=== PATIENT | female | born 1990 | race Caucasian/White ===

== ENCOUNTER 2017-02-02 17:18 | Emergency (ER) | payer OTHER ==
[2017-02-02 17:32] VITALS: BP 123/73; PULSE 86; TEMP 98.4; BMI 26.5
[2017-02-02] MEDS ORDERED: KETOROLAC TROMETHAMINE 60 MG/2 ML VIAL IM ONE (18:13)
[2017-02-02] MEDS ORDERED: KETOROLAC TROMETHAMINE 60 MG/2 ML VIAL ONE (18:15)
--- NOTE | 2017-02-02 18:18 | PDOC ---
History of Present Illness - General Chief Complaint: Pain, Acute Stated Complaint: FOOT INJURY Time Seen by Provider: 02/02/17 18:06 History Source: Patient Exam Limitations: No Limitations - History of Present Illness Initial Comments: 02/02/17 18:15 CHIEF COMPLAINT: Right lateral lower back pain radiating down right leg HISTORY OF PRESENT ILLNESS: 26-year-old female, no significant medical history currently no medication presents with right lateral lower back pain radiating down right lateral leg into the foot. Patient denies any previous history of back pain, no neurosensory deficits, no bowel or bladder difficulty incontinence or urinary retention, no saddle anesthesia, no footdrop. No history of IVDU or history of cancer. Denies lifting anything heavy or trauma. Patient has had pain for 1 week, took only 2 Motrin without resolve symptoms. REVIEW OF SYSTEMS: GENERAL: Afebrile, denies any weakness RESPIRATORY: No cough, wheezing, or hemoptysis. CARDIAC: No chest pain or shortness of breath MUSCULOSKELETAL: Right lateral lower back pain, pain radiating down right lateral leg and foot. SKIN : No erythema, no bruising, no deformity. GI/: Denies any abdominal pain, no urinary difficulty, incontinence or urinary retention. RECTAL: Denies any difficulty this A.m. NEUROLOGICAL: Denies any numbness or tingling. No neurosensory deficits. PHYSICAL EXAM: GENERAL: The patient is awake, alert, and fully oriented, in no acute distress. RESPIRATORY: Lungs clear bilaterally, no rhonchi wheezes or crackles CARDIAC: S1-S2 audible, no murmur rub or gallop MUSCULOSKELETAL: Pain to right lateral lower back radiating down right lateral leg into foot, pain localized to the posterior foot, no tingling or sensory deficit. Less than 2 second cap refill, +4 popliteal and pedal pulses. GI/: Abdomen soft, nontender, nondistended. No rebound tenderness. No masses palpable. MUSCULOSKELETAL: No spinal point tenderness. Normal reflexive and no deficits to sensation or strength. No calf pain. No erythema or edema to lower leg. RECTAL: Normal Rectal Tone. SKIN: Warm, Dry, normal turgor, no erythema, no edema no bruising. Past History - Past Medical History Allergies/Adverse Reactions: Allergies Allergy/AdvReac Type Severity Reaction Status Date / Time No Known Drug Allergies Allergy Verified 02/02/17 17:29 Home Medications: Ambulatory Orders Diazepam [Valium] 5 mg PO Q8H #15 tablet MDD 3 02/02/17 Methylprednisolone [Medrol Dose Feliciano] 4 mg PO ASDIR #21 tablet 02/02/17 Asthma: No Cancer: No Cardiac Disorders: No Diabetes: No HTN: No Seizures: No Thyroid Disease: No - Immunization History Immunization Up to Date: Yes - Psycho/Social/Smoking Cessation Hx Anxiety: No Suicidal Ideation: No Smoking History: Never smoked Have you smoked in the past 12 months: No Information on smoking cessation initiated: No Hx Alcohol Use: No Drug/Substance Use Hx: No Substance Use Type: None Hx Substance Use Treatment: No *Physical Exam - Vital Signs Last Vital Signs Temp Pulse Resp BP Pulse Ox 98.4 F 86 18 123/73 100 02/02/17 17:29 02/02/17 17:29 02/02/17 17:29 02/02/17 17:29 02/02/17 17:29 Medical Decision Making - Medical Decision Making 02/02/17 18:18 A/P: Patient here for evaluation of sciatic type pain, patient with no risk factor for DVT, Toradol 60 mg IM times one given, will reevaluate 02/02/17 19:00 Patient reports that pain is still the same, Valium 5 mg by mouth 1 ordered. 02/02/17 20:10 Via [place] grill associate, patient states she feels slightly better after medication, will DC patient home on Medrol Dosepak, Valium. Ice pack to lower back. Follow-up with orthopedics or neurology if pain persists. Patient is noticeably ambulate without difficulty, sitting without difficulty. I discussed the physical exam findings, ancillary test results and final diagnoses with the patient. I answered all of the patient's questions. The patient was satisfied with the care received and felt comfortable with the discharge plan and treatment plan. The patient will call to arrange follow-up and will return to the Emergency Department with any new, persistent or worsening symptoms. *DC/Admit/Observation/Transfer Diagnosis at time of Disposition: Sciatic nerve pain Qualifiers: Laterality: right Qualified Code(s): M54.31 - Sciatica, right side - Discharge Dispostion Disposition: HOME Condition at time of disposition: Good Admit: No - Prescriptions Prescriptions: Methylprednisolone [Medrol Dose Feliciano] 4 mg PO ASDIR #21 tablet Diazepam [Valium] 5 mg PO Q8H #15 tablet MDD 3 - Referrals Referrals: Leland Marcus DO [Staff Physician] - - Patient Instructions Printed Discharge Instructions: DI for Sciatica, Sciatica (Alternative Therapy) Additional Instructions: 1. Please return to the emergency department with any numbness, tingling, weakness, numbness or tingling to groin or legs, or loss of bowel or bladder function. 2. Use pain medication as ordered. 3. Please is to followup in the office of Dr. Marcus for evaluation within a week if no improvement. 4. Ice or heat 5. Refrain from lifting anything above 10 pounds, until pain resolved. - Post Discharge Activity Work/School Note: Back to Work
[2017-02-02] MEDS ORDERED: diazePAM 5 MG TABLET PO ONE (18:59)
[2017-02-02] MEDS ORDERED: diazePAM 5 MG TABLET ONE (19:01)
== END 2017-02-02 20:19 | disposition home or self-care (01) ==
LOC: JERFT 17:18
PROC: 3E0233Z Introduction of Anti-inflammatory into Muscle, Percutaneous Approach (ICD-10-PCS; principal; 2017-02-02)
DX: M54.41 Lumbago with sciatica, right side (principal)
CPT/HCPCS: 96372; 99281-25

== ENCOUNTER 2018-02-18 11:57 | Emergency (ER) | payer OTHER ==
[2018-02-18 12:21] VITALS: BP 113/61; PULSE 67; TEMP 99.9; BMI 28.5
--- NOTE | 2018-02-18 12:41 | PDOC ---
History of Present Illness - General Chief Complaint: [facility] Stated Complaint: FOLLOW UP Time Seen by Provider: 02/18/18 12:18 History Source: Patient - History of Present Illness Associated Symptoms: denies: fever/chills Past History - Past Medical History Allergies/Adverse Reactions: Allergies Allergy/AdvReac Type Severity Reaction Status Date / Time No Known Drug Allergies Allergy Verified 02/18/18 12:32 Home Medications: Ambulatory Orders NK [No Known Home Medication] 02/18/18 Asthma: No Cancer: No Cardiac Disorders: No COPD: No Diabetes: No HTN: No Seizures: No Thyroid Disease: No - Immunization History Immunization Up to Date: Yes - Suicide/Smoking/Psychosocial Hx Smoking History: Never smoked Have you smoked in the past 12 months: No Information on smoking cessation initiated: No Hx Alcohol Use: No Drug/Substance Use Hx: No Substance Use Type: None Hx Substance Use Treatment: No Review of Systems - Review of Systems Constitutional: No: Chills, Fever ABD/GI: No: Nausea, Vomiting, Abdominal cramping : No: Dysuria *Physical Exam - Vital Signs Last Vital Signs Temp Pulse Resp BP Pulse Ox 99.9 F H 67 16 113/61 99 02/18/18 12:08 02/18/18 12:08 02/18/18 12:08 02/18/18 12:08 02/18/18 12:08 - Physical Exam General Appearance: Yes: Appropriately Dressed. No: Apparent Distress Neck: positive: Supple Respiratory/Chest: negative: Respiratory Distress Gastrointestinal/Abdominal: positive: Soft. negative: Tender Integumentary: positive: Dry, Warm Neurologic: positive: Fully Oriented, Alert, Normal Mood/Affect ED Treatment Course - RADIOLOGY Radiology Studies Ordered: Category Date Time Status TRANSVAGINAL US PREG [US] Stat Ultrasound 02/18/18 12:36 Ordered Medical Decision Making - Medical Decision Making 02/18/18 12:36 27 yo F, , ~ 5-6 weeks by dates, here for rpt beta and ultrasound. Patient was initially seen in ED 3 days ago c/o abd pain (of note pt under different MRN on 02/16-[id number]). Beta >3K w/ m/l intrauterine ges sac @ 5 weeks. A+ on T& S w/ neg ucx. Abd pain since improved. 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 No adnexal masses or FF. Beta with inappropriate rise, 5705 today vs 3942, 3 days ago. Disposition d/w Dr Santiago in main ED who states m/l ab/nl preg/miscarriage, less likely ectopic. States pt to f/u with OB on Wednesday and to return for worsening pain and/or vag bleed. *DC/Admit/Observation/Transfer Diagnosis at time of Disposition: Abdominal pain affecting - Discharge Dispostion Disposition: HOME Condition at time of disposition: Good - Referrals - Patient Instructions Printed Discharge Instructions: Miscarriage Additional Instructions: [place] ultrasonido muestra un embarazo temprano, mary segn los niveles hormonales en mont[place] mary, el embarazo no se desarrolla normalmente. [place] nivel de hormonas hoy fue de 5705. El mircoles fue 3942. El nmero debera duplicarse cada 2 thomson. Es muy posible que pueda terminar teniendo un aborto espontneo. Debe seguir con [place] OB el prximo lunes. Mientras tanto, si el dolor abdominal empeora y / o desarrolla sangrado vaginal, regrese a la lauren de emergencia de inmediato Print Language: SAMI - Post Discharge Activity
[2018-02-18] MEDS ORDERED: ACETAMINOPHEN 325 MG TABLET (FP) PO ONE (14:11)
[2018-02-18] MEDS ORDERED: ACETAMINOPHEN 325 MG TABLET (FP) ONE (14:15)
== END 2018-02-18 14:20 | disposition home or self-care (01) ==
LOC: JERFT 11:57 → JER 11:57 → JERFT 14:20
DX: O26.891 Other specified pregnancy related conditions, first trimester (principal); R10.9 Unspecified abdominal pain; Z3A.01 Less than 8 weeks gestation of pregnancy
CPT/HCPCS: 36415; 76817-TC; 84702; 99281-25

== ENCOUNTER 2018-04-02 17:06 | Emergency (ER) | payer OTHER ==
--- NOTE | 2018-04-02 18:05 | PDOC ---
History of Present Illness - General Chief Complaint: Vaginal Bleeding Stated Complaint: VAGINAL BLEEDING Time Seen by Provider: 04/02/18 17:17 History Source: Patient Exam Limitations: Language Barrier - History of Present Illness Travel History: No Initial Comments: 28 yo F w a hx of anemia who presents to the ED with suprapubic abdominal pain, lower back pain, vaginal bleeding and subjective fevers less than 100 for the past 4 days. She states that on Wednesday she was told here on the 4th floor of [facility] that she had a miscarriage. This is her first miscarriage. She notes that when she goes to the bathroom she is passing clot like material which can resemble POC. Her LMP was 2 months ago - she does not remember the date. She also endorses mild dizziness and lightheadedness for the past 2 days. PCP: Goyo Silva OB-CONTENT STRATEGIST: Laura Ahmadi Allergies: NKA, NKDA Social Hx: Denies using cigarettes, alcohol, or illicit drugs Past History - Past Medical History Allergies/Adverse Reactions: Allergies Allergy/AdvReac Type Severity Reaction Status Date / Time No Known Drug Allergies Allergy Verified 04/02/18 18:14 Home Medications: Ambulatory Orders NK [No Known Home Medication] 02/18/18 Anemia: Yes Asthma: No Cancer: No Cardiac Disorders: No COPD: No Diabetes: No HTN: No Seizures: No Thyroid Disease: No - Immunization History Immunization Up to Date: Yes - Suicide/Smoking/Psychosocial Hx Smoking History: Never smoked Have you smoked in the past 12 months: No Hx Alcohol Use: No Drug/Substance Use Hx: No Substance Use Type: None Hx Substance Use Treatment: No Review of Systems - Review of Systems Comments:: CONSTITUTIONAL: Present: Fever Absent: no chills, no fatigue EYES: Absent: visual changes ENT: Absent: ear pain, no sore throat CARDIOVASCULAR: Absent: chest pain, no palpitations RESPIRATORY: Absent: cough, no SOB GI: Present: Abdominal pain Absent: no nausea, no vomiting, no constipation, no diarrhea GENITOURINARY: Present: Vaginal bleeding Absent: dysuria, no frequency MUSKULOSKELETAL: Present: Back pain Absent: no arthralgia, no myalgia SKIN: Absent: rash NEURO: Present: headache *Physical Exam - Physical Exam Comments: PELVIC EXAM: Significant amount of blood in the vaginal vault. There appears to be POC. + L adnexal TTP. No CMT TTP. The Os appears closed. GENERAL: Well-appearing, well-nourished. No apparent distress. HEENT: Normocephalic, atraumatic. PERRL, EOM intact. CARDIOVASCULAR: Normal S1, S2. Regular rate and rhythm. PULMONARY: Clear to auscultation bilaterally. ABDOMEN: There is significant suprapubic TTP. Normal BS. EXTREMITIES: Normal ROM in all four extremities. No gross deformities. SKIN: Warm, dry. No rash NEUROLOGICAL: No focal neurological deficits. ED Treatment Course - LABORATORY CBC & Chemistry Diagram: 04/02/18 22:25 04/02/18 18:20 Medical Decision Making - Medical Decision Making 28 yo F w a hx of anemia who presents to the ED with suprapubic abdominal pain, lower back pain, vaginal bleeding and subjective fevers less than 100 for the past 4 days. -states she was told on Wednesday here at [facility] she experienced a miscarriage. DD includes but not limited to: Septic , retained POC, Uterine infection , ectopic, UTI/Pylo. Plan: Cbc, Cmp, type, INR/PT, HCG, UA/UC, IV-hydration, acetaminophen, TVUS, OBGYN consult, re-assess Dr. Howe came down and saw patient -it was determined that her bleeding is likely the result of her prodcuts of conception coming out. This is likely not a septic . Will DC patient and inform her the need to come back in the next 3 to 5 days to make sure her Beta HCG is trending downward. *DC/Admit/Observation/Transfer Diagnosis at time of Disposition: Miscarriage, Retained products of conception - Discharge Dispostion Disposition: HOME Condition at time of disposition: Stable Decision to Admit order: No - Referrals Referrals: Holden Nance MD [Primary Care Provider] - - Patient Instructions Printed Discharge Instructions: DI for Vaginal Bleeding During Additional Instructions: You came into the ER for vaginal bleeding. We determined that your bleeding is likely a result of the miscarriage. It is very important you immediately call for an appointment to check your blood work this coming wednesday to make sure your Beta HCG level is going down. Come back to the ER if your abdominal pain worsens, you experience significant vaginal bleeding, or have any other new or worsening concerns. Thank you for coming to the [facility]. We hope you feel better soon! Print Language: UZBEK - Post Discharge Activity
[2018-04-02] MEDS ORDERED: ACETAMINOPHEN 1000 MG/100 ML VIAL (NON FORMULARY) IVPB ONE (18:12)
[2018-04-02] MEDS ORDERED: SODIUM CHLORIDE 0.9% 500 ML INFUS.BAG IV ONE (18:12)
[2018-04-02 18:14] VITALS: BMI 27.3
[2018-04-02] MEDS ORDERED: ACETAMINOPHEN INJECTION 100 ML IVPB ONE (18:54)
--- NOTE | 2018-04-02 18:55 | PDOC ---
Attending Attestation - Resident Resident Name: Derrick Newton - ED Attending Attestation I have performed the following: I have examined & evaluated the patient, The case was reviewed & discussed with the resident, I agree w/resident's findings & plan, Exceptions are as noted - HPI HPI: 04/02/18 18:51 28 year old female with complaints of lower abdominal pain, lower back pain , and vaginal bleeding for the past four days. She was seen by her OB (does not remember name) three days ago where she was told she was having a miscarriage. She reports bleeding since as well as associated lightheadedness for two days and subjective fever. Denies any nausea, vomiting, diarrhea, cough, SOB, chest pain, or urinary complaints. - Physicial Exam PE: 04/02/18 18:52 agree with resident exam - Medical Decision Making 04/02/18 18:52 28yo F presents to the ED with vaginal bleeding, suprapubic pain, and fevers since diagnosed with miscarriage 4 days ago. Vitals wnl. Exam with suprapubic ttp, no other abd ttp, and pooling of blood in vaginal vault with closed os. Concern for retained POCs, will check labs, TVUS, and c/s OB. 04/02/18 22:01 Labs wnl UA with 2+ blood US with likely demise Case discussed with Dr. Fagan, she is on her way to see pt Pt placed on ED obs 04/02/18 22:19 Dr Fagan has seen and examined the pt, reviewed TVUS Recommends outpt rpt B-HCG middle of nxt week Pt no longer having cramping No heavy bleeding in the ED Will rpt cbc and if stable, likely DC 04/02/18 22:58 Rpt hgb 11.5. Accounting for 1L of fluids in btwn cbc, this drop is expected Pt feels well, encouraged to f/u in 3-4 days for rpt B-HCG I discussed the physical exam findings, ancillary test results and final diagnoses with the patient. I answered all of the patient's questions. The patient was satisfied with the care received and felt comfortable with the discharge plan and treatment plan. The patient will call their primary care physician within 24 hours to arrange follow-up and will return to the Emergency Department with any new, persistent or worsening symptoms.
[2018-04-02 18:58] LABS: BASO % 0.7 % (0-2.0); HEMATOCRIT 35.9 % (32.4-45.2); HEMOGLOBIN 12.2 GM/dL (10.7-15.3); LYMPH % 22.6 % (8-40); MCH 30.8 pg (25.7-33.7); MEAN CELL VOLUME 90.5 fl (80-96); MEAN PLT VOLUME 7.1 fl (7.5-11.1); MONO % 4.6 % (3.8-10.2); NEUT % 68.1 % (42.8-82.8); PLATELET COUNT 311 K/MM3 (134-434); RBC 3.96 M/mm3 (3.60-5.2); RDW 12.5 % (11.6-15.6); WHITE BLOOD COUNT 7.8 K/mm3 (4.0-10.0)
[2018-04-02 19:03] LABS: URINE APPEARANCE CLEAR; URINE BILIRUBIN NEGATIVE (<2.0 mg/dL); URINE COLOR COLORLESS; URINE GLUCOSE (UA) NEGATIVE (NEGATIVE); URINE KETONE NEGATIVE (NEGATIVE); URINE LEUK ESTERASE NEGATIVE (NEGATIVE); URINE NITRITE NEGATIVE (NEGATIVE); URINE PROTEIN NEGATIVE (NEGATIVE); URINE UROBILINOGEN NEGATIVE mg/dL (0.2-1.0)
[2018-04-02 19:17] LABS: INR 1.04 (0.83-1.09); PROTHROMBIN TIME (PATIENT) 12.3 SEC (9.7-13.0)
[2018-04-02 19:35] LABS: EPI CELLS RARE /HPF (FEW); URINE MUCUS RARE
[2018-04-02 20:08] LABS: ALBUMIN 3.7 g/dl (3.4-5.0); ALK PHOS 78 U/L (45-117); ANION GAP 7 MMOL/L (8-16); BILIRUBIN,TOTAL 0.3 mg/dL (0.2-1); BLOOD UREA NITROGEN 10 mg/dL (7-18); CALCIUM 8.6 mg/dL (8.5-10.1); CHLORIDE 109 mmol/L (98-107); CO2 22 mmol/L (21-32); CREATININE 0.4 mg/dL (0.55-1.3); GLUCOSE,RANDOM 98 mg/dL (74-106); POTASSIUM 3.9 mmol/L (3.5-5.1); SGOT/AST 44 U/L (15-37); SGPT/ALT 44 U/L (13-61); SODIUM 138 mmol/L (136-145); TOT PROT 7.2 g/dl (6.4-8.2)
[2018-04-02 22:35] LABS: HEMOGLOBIN 11.5 GM/dL (10.7-15.3); MCH 30.6 pg (25.7-33.7); MCHC 33.8 g/dl (32.0-36.0); MEAN CELL VOLUME 90.5 fl (80-96); MEAN PLT VOLUME 6.8 fl (7.5-11.1); PLATELET COUNT 283 K/MM3 (134-434); RBC 3.76 M/mm3 (3.60-5.2); RDW 12.1 % (11.6-15.6); WHITE BLOOD COUNT 7.2 K/mm3 (4.0-10.0)
[2018-04-02 23:51] VITALS: BP 126/78; PULSE 88; TEMP 98.5
--- NOTE | 2018-04-04 07:10 | CON.OBG ---
Consult Consult Specialty:: HIGH TENSION TESTER Reason for Consultation:: Vaginal bleeding - History of Present Illness Chief Complaint: Vaginal bleeding History of Present Illness: 28 y0 with complaints of lower abdominal pain, lower back pain, and vaginal bleeding for the past four days presents to ER c/o vaginal bleeding. She was seen by her OB (does not remember name) three days ago where she was told she was having a miscarriage. She's been experiencing bleeding associated with lightheadedness for two days. Denies any nausea, vomiting, diarrhea, cough , SOB, chest pain, or urinary complaints. I came to see patient, she admits to have just passed a large clot and since then bleeding has subsided. - History Source History Provided By: Patient Limitations to Obtaining History: No Limitations - Past Medical History ...LMP: 11/16/17 ...: Yes ...: 5 ...Para: 4 - Past Surgical History Past Surgical History: Yes: None - Alcohol/Substance Use Hx Alcohol Use: No - Smoking History Smoking history: Never smoked Have you smoked in the past 12 months: No - Social History Usual Living Arrangement: With Significant Other History of Recent Travel: No Home Medications - Allergies Allergies/Adverse Reactions: Allergies Allergy/AdvReac Type Severity Reaction Status Date / Time No Known Drug Allergies Allergy Verified 04/02/18 18:14 - Home Medications Home Medications: Ambulatory Orders NK [No Known Home Medication] 02/18/18 Family Disease History - Family Disease History Family History: Unremarkable Review of Systems - Review of Systems Constitutional: reports: No Symptoms Eyes: reports: No Symptoms HENT: reports: No Symptoms Neck: reports: No Symptoms Cardiovascular: reports: No Symptoms Respiratory: reports: No Symptoms Gastrointestinal: reports: No Symptoms Genitourinary: reports: Vaginal Bleeding Breasts: reports: No Symptoms Reported Musculoskeletal: reports: No Symptoms Integumentary: reports: No Symptoms Neurological: reports: No Symptoms Endocrine: reports: No Symptoms Hematology/Lymphatic: reports: No Symptoms Psychiatric: reports: No Symptoms Pain Intensity: 2 Physical Exam-HIGH TENSION TESTER Vital Signs: Vital Signs Temperature 98.5 F 04/02/18 22:50 Pulse Rate 88 04/02/18 22:50 Respiratory Rate 19 04/02/18 22:50 Blood Pressure 126/78 04/02/18 22:50 O2 Sat by Pulse Oximetry (%) 100 10/20/18 22:50 Constitutional: Yes: Well Nourished Eyes: Yes: Conjunctiva Clear HENT: Yes: Atraumatic Neck: Yes: Supple Cardiovascular: Yes: Regular Rate and Rhythm Respiratory: Yes: Regular Gastrointestinal: Yes: Normal Bowel Sounds External Genitalia: Yes: Normal Vaginal Exam: Yes: Other (Bloody discharge) Cervix: Yes: Other (Os closed) Uterus: No: Tender Musculoskeletal: Yes: WNL Extremities: Yes: WNL Neurological: Yes: Alert, Oriented ...Motor Strength: WNL Psychiatric: Yes: Alert, Oriented Labs: CBC, BMP 04/02/18 22:25 04/02/18 18:20 Assessment/Plan Vaginal bleeding Spontaneous miscarriage Reassurance F/U as outpatient for repeat serum HCG
== END 2018-04-02 23:51 | disposition home or self-care (01) ==
LOC: JER 17:06 → UNDOADMIN 22:02 → JERBED 22:02 → JER 23:51
PROC: 3E033NZ Introduction of Analgesics, Hypnotics, Sedatives into Peripheral Vein, Percutaneous Approach (ICD-10-PCS; principal; 2018-04-02)
DX: O03.4 Incomplete spontaneous abortion without complication (principal)
CPT/HCPCS: 36415; 76817-TC; 80053; 81003; 81015; 84702; 84703; 85025; 85027; 85610; 86850; 86900; 86901; 87086; 96374; 99283-25; J0131

== ENCOUNTER 2018-09-30 21:20 | Emergency (ER) | payer OTHER ==
--- NOTE | 2018-09-30 21:26 | PDOC ---
Rapid Medical Evaluation Time Seen by Provider: 09/30/18 21:24 Medical Evaluation: Allergies Allergy/AdvReac Type Severity Reaction Status Date / Time No Known Drug Allergies Allergy Verified 04/02/18 18:14 09/30/18 21:24 I performed a brief in-person evaluation of this patient. Chief complaint: , LMP 2/10. Vaginal bleeding intermittent since Wednesday. No u/s yet for this . Pertinent physical exam findings: No focal abdominal tenderness, well-appearing. I have ordered the following: CBC, Bhcg, T&S, transvaginal u/s. Patient will proceed to the ED for further evaluation. Discharge Disposition - Diagnosis Vaginal bleeding - Referrals - Patient Instructions - Post Discharge Activity
[2018-09-30 21:27] VITALS: BP 126/48; PULSE 64; TEMP 98.2; BMI 26.4
[2018-09-30 21:43] LABS: BASO % 0.9 % (0-2.0); EOS % 6.4 % (0-4.5); HEMATOCRIT 34.7 % (32.4-45.2); HEMOGLOBIN 11.9 GM/dL (10.7-15.3); LYMPH % 30.3 % (8-40); MCH 31.7 pg (25.7-33.7); MCHC 34.5 g/dl (32.0-36.0); MEAN CELL VOLUME 91.9 fl (80-96); MONO % 5.7 % (3.8-10.2); NEUT % 56.7 % (42.8-82.8); PLATELET COUNT 285 K/MM3 (134-434); RBC 3.77 M/mm3 (3.60-5.2); RDW 13.3 % (11.6-15.6); WHITE BLOOD COUNT 7.1 K/mm3 (4.0-10.0)
[2018-09-30 22:25] LABS: PH,URINE 6.5 (5.0-8.0); URINE APPEARANCE CLEAR; URINE BILIRUBIN NEGATIVE (NEGATIVE); URINE COLOR YELLOW; URINE GLUCOSE (UA) NEGATIVE (NEGATIVE); URINE KETONE NEGATIVE (NEGATIVE); URINE LEUK ESTERASE TRACE (NEGATIVE); URINE NITRITE NEGATIVE (NEGATIVE); URINE PROTEIN NEGATIVE (NEGATIVE); URINE UROBILINOGEN 0.2 mg/dL (0.2-1.0)
--- NOTE | 2018-09-30 22:34 | PDOC ---
History of Present Illness - General Chief Complaint: Vaginal Bleeding Stated Complaint: VAGINAL BLEEDING/ Time Seen by Provider: 09/30/18 21:24 - History of Present Illness Initial Comments: 10/01/18 00:08 28f A1 presents to the ED 8 weeks for vaginal spotting/bleeding since Wednesday. She saw her obgyn that day who told her it wasn't unusual to be spotting at this stage and to go the the ER if it continued. She denies any abdominal pain, dyuria, dizziness, nausea or vomiting. Did not get an ultrasound at the OBGYN on wednesday. Just bloodwork. Nothing abnormal reported. 10/01/18 00:11 Past History - Past Medical History Allergies/Adverse Reactions: Allergies Allergy/AdvReac Type Severity Reaction Status Date / Time No Known Drug Allergies Allergy Verified 09/30/18 21:34 Home Medications: Ambulatory Orders NK [No Known Home Medication] 02/18/18 Anemia: Yes Asthma: No Cancer: No Cardiac Disorders: No COPD: No CHF: No Diabetes: No HTN: No Seizures: No Thyroid Disease: No - Reproductive History Is Patient Now?: Yes (#): 6 Para: 4 Therapeutic (s) & number: No Spontaneous : 1 - Immunization History Immunization Up to Date: Yes - Suicide/Smoking/Psychosocial Hx Smoking History: Unknown if ever smoked Have you smoked in the past 12 months: No Hx Alcohol Use: No Drug/Substance Use Hx: No Substance Use Type: None Hx Substance Use Treatment: No Review of Systems - Review of Systems Able to Perform ROS?: Yes Is the patient limited Slovenian proficient: No Constitutional: No: Symptoms Reported HEENTM: No: Symptoms Reported Respiratory: No: Symptoms reported Cardiac (ROS): No: Symptoms Reported ABD/GI: Yes: See HPI : Yes: See HPI Musculoskeletal: No: Symptoms Reported Integumentary: No: Symptoms Reported Neurological: No: Symptoms reported All Other Systems: Reviewed and Negative *Physical Exam - Vital Signs Last Vital Signs Temp Pulse Resp BP Pulse Ox 98.2 F 64 20 126/48 L 98 09/30/18 21:24 09/30/18 21:24 09/30/18 21:24 09/30/18 21:24 09/30/18 21:24 - Physical Exam General Appearance: Yes: Nourished, Appropriately Dressed. No: Apparent Distress HEENT: positive: EOMI, CARLOS, Normal ENT Inspection Respiratory/Chest: positive: Lungs Clear, Normal Breath Sounds. negative: Chest Tender, Respiratory Distress Cardiovascular: positive: Regular Rhythm, Regular Rate, S1, S2 Female Pelvic Exam: positive: normal external exam, cervical os closed, normal adnexa, vaginal bleeding. negative: CMT, adnexal tenderness Gastrointestinal/Abdominal: positive: Normal Bowel Sounds, Flat, Soft. negative : Tender Extremity: positive: Normal Capillary Refill, Normal Inspection, Normal Range of Motion Integumentary: positive: Normal Color, Dry, Warm Neurologic: positive: Fully Oriented, Alert, Normal Mood/Affect ED Treatment Course - LABORATORY CBC & Chemistry Diagram: 09/30/18 21:30 - ADDITIONAL ORDERS Additional order review: 09/30/18 21:30 RBC 3.77 MCV 91.9 MCHC 34.5 RDW 13.3 MPV 7.0 L Neutrophils % 56.7 Lymphocytes % 30.3 D Monocytes % 5.7 Eosinophils % 6.4 H Basophils % 0.9 Medical Decision Making - Medical Decision Making 10/01/18 00:10 28F 8 weeks with vaginal bleeding and no pain. Threatened/inevitable vs ectopic No anemia on CBC. TVUS shows evidence of gestational sac dated at 6 weeks but no yolk sac. Os closed on exam. Patient will follow up *DC/Admit/Observation/Transfer Diagnosis at time of Disposition: Vaginal bleeding, Miscarriage - Discharge Dispostion Disposition: HOME Condition at time of disposition: Improved Decision to Admit order: No - Referrals Referrals: Iveth Edward MD [Primary Care Provider] - Laura Ahmadi CNM [Certified Nurse [employer]] - - Patient Instructions Printed Discharge Instructions: Dealing With Miscarriage Additional Instructions: Follow up with your OBGYN within a week. Come back to the emergency for any new, worsening or concerning symptom. - Post Discharge Activity
[2018-09-30 22:58] LABS: EPI CELLS 0.6 /HPF (0-5/HPF); URINE BACTERIA NONE SEEN /hpf (NEGATIVE); URINE CASTS NONE SEEN /lpf (0-8); URINE RBC 0.2 /hpf (0-4)
--- NOTE | 2018-10-01 00:10 | PDOC ---
Documentation entered by Primitivo Jacobsen SCRIBE, acting as scribe for Jerrell Lozada MD. Jerrell Lozada MD: This documentation has been prepared by the Delmar bolden Daniel, SCRIBE, under my direction and personally reviewed by me in its entirety. I confirm that the documentation accurately reflects all work, treatment, procedures, and medical decision making performed by me. Attending Attestation - Resident Resident Name: Rober Lindo - ED Attending Attestation I have performed the following: I have examined & evaluated the patient, The case was reviewed & discussed with the resident, I agree w/resident's findings & plan, Exceptions are as noted - HPI HPI: 09/30/18 21:52 The patient is a 28 year old female, , @ 8 weeks by LMP, with no past medical history here today for evaluation of vaginal bleeding. The patient reports that she has had intermittent vaginal bleeding since 09/28/18. She reports going to her OB who said it was normal but did not do any US or blood tests. Patient came in today because the bleeding continued and she is concerned. Denies fever, chills. Denies chest pain, shortness of breath. Denies nausea, vomiting, diarrhea, abdominal pain. Denies dysuria. Allergies: NKDA PCP: Iveth Edward - Physicial Exam PE: 10/01/18 00:08 "GENERAL: Awake, alert, and fully oriented, in no acute distress. HEAD: No signs of trauma EYES: PERRLA, EOMI, sclera anicteric, conjunctiva clear ENT: Auricles normal inspection, hearing grossly normal, nares patent, oropharynx clear without exudates. Moist mucosa NECK: Nontender, no stepoffs, Normal ROM, supple, no lymphadenopathy, JVD, or masses LUNGS: Breath sounds equal, clear to auscultation bilaterally. No wheezes, and no crackles HEART: Regular rate and rhythm, normal S1 and S2, no murmurs, rubs or gallops ABDOMEN: Soft, nontender, normoactive bowel sounds. No guarding, no rebound. No masses EXTREMITIES: Normal range of motion, no edema. No clubbing or cyanosis. No cords, erythema, or tenderness NEUROLOGICAL: Cranial nerves II through XII intact. 5/5 strength and sensation in all extremities, Normal speech, normal gait, normal cerebellar function SKIN: Warm, Dry, normal turgor, no rashes or lesions noted. - Medical Decision Making 10/01/18 00:08 28 F @ 8 weeks by LMP presenting with vaginal bleeding. US shows blighted ovum vs anembryonic gestation. Pt informed of results, instructed to f/u with OB within 1 week. Pt is well appearing, with normal vitals. Clinically stable for DC at this time. I discussed the physical exam findings, ancillary test results and final diagnoses with the patient. I answered all of the patient's questions. The patient was satisfied with the care received and felt comfortable with the discharge plan and treatment plan. The patient agrees to follow up with the primary care physician within 24-72 hours.
== END 2018-10-01 00:25 | disposition home or self-care (01) ==
LOC: JER 21:20
DX: O26.891 Other specified pregnancy related conditions, first trimester (principal); O02.1 Missed abortion; Z3A.01 Less than 8 weeks gestation of pregnancy
CPT/HCPCS: 36415; 76801-TC; 81003; 84702; 85025; 86850; 86900; 86901; 87086; 99283-25

== ENCOUNTER 2019-08-08 14:35 | Inpatient (IN) | payer OTHER ==
[2019-08-08] MEDS ORDERED: AMPICILLIN - 2 GM in SODIUM CHLORIDE 100 ML IVPB ONE (15:00)
[2019-08-08] MEDS ORDERED: DEXTROSE 5%-LACTATED RINGERS 1,000 ML IV SCH (15:30)
[2019-08-08 15:48] LABS: BASO % 0.2 % (0-2.0); EOS % 0.5 % (0-4.5); HEMATOCRIT 37.3 % (32.4-45.2); HEMOGLOBIN 12.8 GM/dL (10.7-15.3); MCH 32.2 pg (25.7-33.7); MCHC 34.3 g/dl (32.0-36.0); MEAN CELL VOLUME 93.7 fl (80-96); MEAN PLT VOLUME 7.2 fl (7.5-11.1); MONO % 3.6 % (3.8-10.2); NEUT % 78.7 % (42.8-82.8); PLATELET COUNT 297 K/MM3 (134-434); RBC 3.98 M/mm3 (3.60-5.2); RDW 13.5 % (11.6-15.6); WHITE BLOOD COUNT 9.8 K/mm3 (4.0-10.0)
[2019-08-08 16:01] LABS: INR 0.9 (0.83-1.09); PROTHROMBIN TIME (PATIENT) 10.6 SEC (9.7-13.0)
[2019-08-08 16:04] LABS: ACTIVATED PTT 30.2 SECONDS (25.2-36.5)
[2019-08-08 16:16] LABS: BLOOD UREA NITROGEN 7.2 mg/dL (7-18); CALCIUM 9.2 mg/dL (8.5-10.1); CREATININE 0.4 mg/dL (0.55-1.3); POTASSIUM 3.7 mmol/L (3.5-5.1)
[2019-08-08] MEDS ORDERED: ACETAMINOPHEN 325 MG TABLET (FP) PO PRN (16:36)
[2019-08-08] MEDS ORDERED: WITCH HAZEL 50% (TUCKS) 40 PAD/JAR PAD TP PRN (16:36)
[2019-08-08] MEDS ORDERED: BENZOCAINE 20% 57 GM BOTTLE TP PRN (16:36)
[2019-08-08] MEDS ORDERED: BENZOCAINE 28 GM HEMORRHOIDAL OINTMENT TP PRN (16:36)
[2019-08-08] MEDS ORDERED: BISACODYL 10 MG SUPP.RECT RC PRN (16:36)
[2019-08-08] MEDS ORDERED: METHYLERGONOVINE MALEATE 0.2 MG/1 ML AMP IM PRN (16:36)
[2019-08-08] MEDS ORDERED: oxyCODONE HCL 5 MG TABLET PO PRN (16:36)
--- NOTE | 2019-08-08 16:48 | HP ---
Past Medical History - Primary Care Physician PCP:: Silva Chandra - Admission Chief Complaint: 29 yrs , 39.3/7 weeks by sono admitted in active labor History of Present Illness: PNC at , [facility] wt gain 20 lbs Prental panel 12/22/18 : APos,Hep bsag neg, Hepc neg, gc/ct neg , rpr nr, Hiv nr , ,sickle neg , rubella immune, measles immune Iron panel wnl 05/04/19: gct 111, quantiferon neg , 36 weeks cultures : hgb/hct 12.8/37 -,gbs pos, gc/ct neg, hiv neg sonograms done by [facility] . for growth genetic screening not done last sono 06/21/19 vx, betito 15.3, efw4'8"( 40 %tile), course uneventful History Source: Patient, Medical Record Limitations to Obtaining History: No Limitations - Past Medical History DEWER: No: CVA, Migraine Cardiovascular: No: HTN, Mitral Stenosis Pulmonary: No: Asthma Gastrointestinal: Yes: Hemorrhoids Hepatobiliary: No: Hepatitis B, Hepatitis C Renal/: No: UTI ...: 6 ...Para: 4 (G110/02/26 7'3"[facility], G2 09/28/07 7'2 f f [facility], G3 02/04/10 8'3[facility] ...Term: 4 ...Spon : 1 (g5-10/2018) ...LMP: 10/21/18 ... Weeks Gestation by Dates: 37.2 ...EDC by Dates: 08/28/19 ...EDC by Sono: 08/13/19 (39.3 weeks by sono ) Heme/Onc: Yes: Anemia (before pregn) Infectious Disease: No: AIDS, HIV, STD's, Tuberculosis Psych: No: Addictions, Anxiety, Bipolar, Depression, Panic, Psychosis, Schizophrenia, Other Endocrine: No: Diabetes Mellitus, Hypothyroidism - Past Surgical History Past Surgical History: Yes: None Hx Myomectomy: No Hx Transabdominal Cerclage: No - Smoking History Smoking history: Unknown if ever smoked Have you smoked in the past 12 months: No - Alcohol/Substance Use Hx Alcohol Use: No History of Substance Use: reports: None - Social History History of Recent Travel: No Home Medications - Allergies Allergies/Adverse Reactions: Allergies Allergy/AdvReac Type Severity Reaction Status Date / Time No Known Drug Allergies Allergy Verified 08/08/19 15:16 - Home Medications Home Medications: Ambulatory Orders Ferrous Sulfate [Iron] 1 tab PO DAILY 07/05/19 Vit No.129/Iron/Folic [ One Daily Tablet] 1 tab PO DAILY Physical Exam - Maternity Vital Signs: Selected Entries 08/08/19 16:01 Weight 170 lb Selected Entries 08/08/19 14:35 Temperature 99.0 F Pulse Rate 75 Respiratory 20 Rate Blood Pressure 125/74 Constitutional: Yes: Well Nourished, Severe Distress Eyes: Yes: WNL HENT: Yes: WNL Neck: Yes: WNL Cardiovascular: Yes: WNL, Regular Rate and Rhythm Lungs: Clear to auscultation Breast(s): Yes: WNL - Abdominal Exam/OB Fundal Height: 38 Number of Fetuses: Single Presentation: Vertex Contractions: Yes Regularity: Regular (2 min) Intensity: Strong Monitor Mode: External Heart Rate (range): 150 Heart Rate Location: [facility] Category: I Accelerations: Uniform Decelerations: None - Vaginal Exam/OB Vaginal Bleediing: Moderate Speculum Exam: No Dilatation (cm): 7-8 Effacement (%): 100 Amniotic Membrane Status: Intact (arom AT 15.20 hr) Presentation: Vertex/Position (exam at 15.00hr) Station: +1 - Physical Exam Musculoskeletal: Yes: WNL Extremities: Yes: WNL. No: Calf Tenderness Edema: Yes Edema: LLE: 1+, RLE: 1+ ...Motor Strength: WNL Psychiatric: Yes: WNL, Alert, Oriented - Labs Lab Results: CBC, BMP 08/08/19 15:00 08/08/19 15:00 Laboratory Tests 08/08/19 08/08/19 15:00 15:00 PT with INR 10.60 INR 0.90 PTT (Actin FS) 30.2 Blood Type A POSITIVE Antibody Screen Negative Problem List - Problems (1) with 39 completed weeks gestation Code(s): Z3A.39 - 39 WEEKS GESTATION OF (2) Labor established Code(s): RVC0707 - (3) Positive GBS test Code(s): B95.1 - STREPTOCOCCUS, GROUP B, CAUSING DISEASES CLASSD ELSWHR (4) Grand multipara in labor Code(s): O09.40 - SUPERVISION OF W GRAND MULTIPARITY, UNSP TRIMESTER Assessment/Plan 29 rs 39.3/7 weeks in active labor , GBS pos Plan Iv Amicillin prophylaxis Vaginal del conducted at 15.36 hr placenta & memb at 15.40 hr ppcare
[2019-08-08 17:33] VITALS: BMI 29.2
--- NOTE | 2019-08-08 17:33 | PN ---
Delivery - Delivery Vaginal Delivery: No Problems, Spontaneous (pt had , vx, delievered daniel position, tight loop of cord around neckc x1 , cord clamp & cut before delivery of shoulder, shoulder delievered without difficulty. Cord blood collected .placenta & membranes delievered completely .perineum & vagina ,cx intact, cx 2nd degree descent . 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
[2019-08-08] MEDS: OXYTOCIN 20 UNITS in 0.9% NS 20 UNIT/1,000 ML INFUS.BAG IV SCH ×2 (17:40→20:00)
[2019-08-08] MEDS: FERROUS SO4 325 MG TABLET (FP) PO SCH (18:03)
[2019-08-08] MEDS ORDERED: IBUPROFEN 600 MG TABLET (FP) PO ONE (18:20)
[2019-08-08] MEDS: IBUPROFEN 600 MG TABLET (FP) PO PRN (18:20)
[2019-08-08] MEDS ORDERED: AMPICILLIN - 1 GM in SODIUM CHLORIDE 100 ML IVPB SCH (19:00)
[2019-08-08] MEDS ORDERED: OXYTOCIN 20 UNITS in 0.9% NS 20 UNIT/1,000 ML INFUS.BAG IV ONE (20:07)
[2019-08-09] MEDS: FERROUS SO4 325 MG TABLET (FP) PO SCH ×2 (07:46→17:56)
[2019-08-09 08:06] LABS: BASO % 0.2 % (0-2.0); HEMATOCRIT 33.3 % (32.4-45.2); HEMOGLOBIN 11.5 GM/dL (10.7-15.3); LYMPH % 18.8 % (8-40); MCH 32.2 pg (25.7-33.7); MCHC 34.6 g/dl (32.0-36.0); MEAN PLT VOLUME 6.7 fl (7.5-11.1); MONO % 4.6 % (3.8-10.2); NEUT % 75.4 % (42.8-82.8); PLATELET COUNT 251 K/MM3 (134-434); RBC 3.58 M/mm3 (3.60-5.2); RDW 13.5 % (11.6-15.6); WHITE BLOOD COUNT 9.4 K/mm3 (4.0-10.0)
--- NOTE | 2019-08-09 09:13 | PN ---
Post Progress Note - Subjective Subjective: c/o cramps Post Day: 1 Type of Delivery: Vital Signs: Vital Signs Temperature 98.0 F 08/09/19 06:00 Pulse Rate 66 08/09/19 06:00 Respiratory Rate 18 08/09/19 06:00 Blood Pressure 103/58 L 08/09/19 06:00 O2 Sat by Pulse Oximetry (%) 99 08/08/19 17:15 Breast Exam: Yes: Soft, Other (BF). No: Engorged Uterus: Yes: Fundus Firm, Fundus below umbilicus, Non-tender Lochia: Yes: Rubra Lochia, amount: Moderate Extremities: Yes: Calves non-tender Perineum: Yes: Intact Activity: Ambulating - Labs Labs: CBC WBC 9.4 K/mm3 (4.0-10.0) 08/09/19 07:40 RBC 3.58 M/mm3 (3.60-5.2) L 08/09/19 07:40 Hgb 11.5 GM/dL (10.7-15.3) 08/09/19 07:40 Hct 33.3 % (32.4-45.2) 08/09/19 07:40 MCV 93.0 fl (80-96) 08/09/19 07:40 MCH 32.2 pg (25.7-33.7) 08/09/19 07:40 MCHC 34.6 g/dl (32.0-36.0) 08/09/19 07:40 RDW 13.5 % (11.6-15.6) 08/09/19 07:40 Plt Count 251 K/MM3 (134-434) 08/09/19 07:40 MPV 6.7 fl (7.5-11.1) L 08/09/19 07:40 Absolute Neuts (auto) 7.1 K/mm3 (1.5-8.0) 08/09/19 07:40 Neutrophils % 75.4 % (42.8-82.8) 08/09/19 07:40 Lymphocytes % 18.8 % (8-40) 08/09/19 07:40 Monocytes % 4.6 % (3.8-10.2) 08/09/19 07:40 Eosinophils % 1.0 % (0-4.5) D 08/09/19 07:40 Basophils % 0.2 % (0-2.0) 08/09/19 07:40 Nucleated RBC % 0 % (0-0) 08/09/19 07:40 Problem List - Problems (1) with 39 completed weeks gestation Code(s): Z3A.39 - 39 WEEKS GESTATION OF (2) Labor established Code(s): HDI1069 - (3) Positive GBS test Code(s): B95.1 - STREPTOCOCCUS, GROUP B, CAUSING DISEASES CLASSD ELSWHR (4) Grand multipara in labor Code(s): O09.40 - SUPERVISION OF W GRAND MULTIPARITY, UNSP TRIMESTER (5) (normal spontaneous vaginal delivery) Code(s): O80 - ENCOUNTER FOR FULL-TERM UNCOMPLICATED DELIVERY (6) Encounter for care and examination after delivery Code(s): Z39.2 - ENCOUNTER FOR ROUTINE FOLLOW-UP Assessment/Plan stable ct pp care discharge tomorrow.
[2019-08-09] MEDS ORDERED: DIPHTH,PERTUSS(ACELL),TET 0.5 ML DISP.SYRIN IM ONE (10:00)
[2019-08-09] MEDS: PRENATAL VITAMINS W/ FOLIC ACID TABLET (FP) PO SCH (10:11)
[2019-08-09] MEDS ORDERED: SENNOSIDES/DOCUSATE COMBO (SENNA PLUS) TABLET (UD) PO PRN (22:00)
--- NOTE | 2019-08-10 07:05 | DS ---
Physical Examination Vital Signs: Vital Signs Temperature 97.8 F 08/09/19 22:00 Pulse Rate 68 08/09/19 22:00 Respiratory Rate 20 08/09/19 22:00 Blood Pressure 116/71 08/09/19 22:00 O2 Sat by Pulse Oximetry (%) 99 08/08/19 17:15 Constitutional: Yes: Well Nourished, No Distress, Calm Eyes: Yes: WNL, Conjunctiva Clear, EOM Intact HENT: Yes: WNL, Atraumatic, Normocephalic Neck: Yes: WNL, Supple, Trachea Midline Cardiovascular: Yes: WNL, Regular Rate and Rhythm Respiratory: Yes: WNL, Regular, CTA Bilaterally Gastrointestinal: Yes: WNL, Normal Bowel Sounds Musculoskeletal: Yes: WNL Extremities: Yes: WNL Edema: No Integumentary: Yes: WNL Neurological: Yes: WNL, Alert, Oriented ...Motor Strength: WNL Psychiatric: Yes: WNL Labs: CBC, BMP 08/09/19 07:40 08/08/19 15:00 Discharge Summary Problems reviewed: Yes Reason For Visit: LABOR Current Active Problems Encounter for care and examination after delivery (Acute) Grand multipara in labor (Acute) Labor established (Acute) (normal spontaneous vaginal delivery) (Acute) Positive GBS test (Acute) with 39 completed weeks gestation (Acute) Procedures: Principal: Hospital Course: Patient presented in labor She had an uncomplicated She met all milestones She was discharged home on PPD#2 MSera Mujica MD Condition: Stable - Instructions Diet, Activity, Other Instructions: Post Instructions DIET: Continue good diet high in protein, calcium, and iron rich foods. Drink at least eight (8) glasses of water daily in addition to other fluids. ct Regular diet MEDICATIONS: Continue vitamins and iron as previously directed. Motrin and Tylenol may be taken for minor discomfort. ACTIVITY: Mild to moderate exercise may be started in two (2) weeks. Take frequent rest periods. Resume normal activity after six (6) week check up. WOUND CARE OF OPERATIVE SITE: Continue use of perineal bottle until vaginal discharge stops. Keep area clean. Shower daily. Keep abdominal wound dry. Report any drainage or redness to physician. Tub baths, tampons and douches are not permitted for [address] Breast feeding & or Bottle feeding BREAST CARE: (For those that are not ): If engorgement occurs: Wear tight fitting bra. Take Tylenol or Motrin for pain. Apply cold packs (ice in bags to each breast ) FAMILY PLANNING: There are many control alternatives to pursue and they should be discussed at your first office visit. You may resume sexual activity after your six (6) week check up. (Remember, is not a contraceptive) NEXT PHYSICIAN APPOINTMENT: Be certain to call for a three (3) week appointment, unless otherwise directed. Call Clinic or got to Emergency Dept if you have any of the following: Heavy vaginal bleeding Painful urination Leg pain Unusual odor noted to vaginal bleeding High fever Red streaking noted on breast Referrals: Silva Chandra MD [Staff Physician] - Disposition: HOME - Home Medications Comprehensive Discharge Medication List: Ambulatory Orders Ferrous Sulfate [Iron] 1 tab PO DAILY 07/05/19 Vit No.129/Iron/Folic [ One Daily Tablet] 1 tab PO DAILY Acetaminophen [Tylenol .Regular Strength -] 650 mg PO Q3H PRN tablet 08/09/19 Ferrous Sulfate [Feosol] 325 mg PO DAILY #30 tab 08/09/19 Ibuprofen 600 mg PO Q6H PRN #30 tablet 08/09/19 Ibuprofen [Motrin -] 200 mg PO Q4H PRN tablet 08/09/19 Vitamins (Sjr) - 1 tab PO DAILY #30 tablet 08/09/19
[2019-08-10] MEDS: IBUPROFEN 600 MG TABLET (FP) PO PRN (09:15)
[2019-08-10] MEDS: PRENATAL VITAMINS W/ FOLIC ACID TABLET (FP) PO SCH (09:15)
[2019-08-10] MEDS: FERROUS SO4 325 MG TABLET (FP) PO SCH (09:15)
[2019-08-10 10:00] VITALS: BP 113/74; PULSE 66; TEMP 98.4
== END 2019-08-10 13:30 | disposition home or self-care (01) | DRG 560 ==
LOC: JLDR 14:35 → J3W 23:10
PROVIDERS: ADMIT Obstetrics & Gynecology; ATTEND Obstetrics & Gynecology
PROC: 10E0XZZ Delivery of Products of Conception, External Approach (ICD-10-PCS; principal; 2019-08-08)
DX: O99.824 Streptococcus B carrier state complicating childbirth (principal); O69.81X0 Labor and delivery complicated by cord around neck, without compression, not applicable or unspecified; O09.40 Supervision of pregnancy with grand multiparity, unspecified trimester; Z3A.39 39 weeks gestation of pregnancy; Z37.0 Single live birth
CPT/HCPCS: 36415; 59409; 80048; 85025; 85610; 85730; 86593; 86850; 86900; 86901; 90715

== ENCOUNTER 2021-04-12 21:08 | Emergency (ER) | payer OTHER ==
[2021-04-12 21:33] VITALS: BP 111/68; PULSE 100; TEMP 98.1; BMI 27.1
[2021-04-12] MEDS ORDERED: ACETAMINOPHEN 325 MG TABLET (FP) PO ONE (22:37)
[2021-04-12] MEDS ORDERED: LIDOCAINE 5% TOPICAL PATCH TP ONE (22:41)
[2021-04-12] MEDS ORDERED: ACETAMINOPHEN 325 MG TABLET (FP) ONE (22:57)
[2021-04-12] MEDS ORDERED: LIDOCAINE 5% TOPICAL PATCH ONE (22:57)
[2021-04-13] MEDS ORDERED: LIDOCAINE PATCH REMOVAL MC ONE (10:00)
== END 2021-04-13 00:30 | disposition home or self-care (01) ==
LOC: JER 21:08
DX: O26.892 Other specified pregnancy related conditions, second trimester (principal); M54.50 Low back pain, unspecified; W19.XXXA Unspecified fall, initial encounter; Z3A.25 25 weeks gestation of pregnancy
CPT/HCPCS: 99283-25

== ENCOUNTER 2021-07-31 09:13 | Inpatient (IN) | payer OTHER ==
[2021-07-31] MEDS: ELECTROLYTE-148 SOLN 1,000 ML IV SCH (09:50)
[2021-07-31] MEDS ORDERED: AMPICILLIN SODIUM 2 GM VIAL ONE (10:19)
[2021-07-31] MEDS ORDERED: LIDOCAINE HCL 1% PRESERVATIVE FREE - 30ML VIAL ONE (10:19)
[2021-07-31] MEDS ORDERED: OXYTOCIN 20 UNITS in 0.9% NS 20 UNIT/1,000 ML INFUS.BAG IV ONE ×2 (10:19→12:41)
[2021-07-31] MEDS ORDERED: AMPICILLIN - 2 GM in SODIUM CHLORIDE 100 ML IVPB ONE (10:20)
[2021-07-31 10:36] LABS: BASO % 0.3 % (0-2.0); EOS % 0.7 % (0-4.5); HEMATOCRIT 35.2 % (32.4-45.2); HEMOGLOBIN 12.1 GM/dL (10.7-15.3); LYMPH % 20.4 % (8-40); MCH 31.5 pg (25.7-33.7); MCHC 34.5 g/dl (32.0-36.0); MEAN CELL VOLUME 91.3 fl (80-96); MEAN PLT VOLUME 6.7 fl (7.5-11.1); MONO % 3.9 % (3.8-10.2); NEUT % 74.7 % (42.8-82.8); PLATELET COUNT 371 10^3/uL (134-434); RBC 3.85 M/mm3 (3.60-5.2); RDW 14.1 % (11.6-15.6); WHITE BLOOD COUNT 8.9 K/mm3 (4.0-10.0)
[2021-07-31 10:41] LABS: INR 0.95 (0.83-1.09); PROTHROMBIN TIME (PATIENT) 10.9 SEC (9.7-13.0)
[2021-07-31 10:50] LABS: CALCIUM 8.8 mg/dL (8.5-10.1)
[2021-07-31 10:51] LABS: BLOOD UREA NITROGEN 7.2 mg/dL (7-18)
[2021-07-31 10:54] LABS: CREATININE 0.5 mg/dL (0.55-1.3)
[2021-07-31] MEDS ORDERED: BENZOCAINE 20% 57 GM BOTTLE TP PRN (11:08)
[2021-07-31] MEDS ORDERED: ACETAMINOPHEN 325 MG TABLET (FP) PO PRN (11:08)
[2021-07-31] MEDS ORDERED: METHYLERGONOVINE MALEATE 0.2 MG/1 ML AMP IM PRN (11:08)
[2021-07-31] MEDS ORDERED: WITCH HAZEL 50% (TUCKS) 40 PAD/JAR PAD TP PRN (11:08)
[2021-07-31] MEDS ORDERED: IBUPROFEN 600 MG TABLET (FP) PO PRN (11:08)
[2021-07-31] MEDS ORDERED: BENZOCAINE 28 GM HEMORRHOIDAL OINTMENT TP PRN (11:08)
[2021-07-31] MEDS ORDERED: BISACODYL 10 MG SUPP.RECT RC PRN (11:08)
[2021-07-31] MEDS ORDERED: OXYTOCIN 20 UNITS in 0.9% NS 20 UNIT/1,000 ML INFUS.BAG IV SCH (11:15)
[2021-07-31 11:38] VITALS: BMI 33.5
[2021-07-31] MEDS: FERROUS SO4 325 MG TABLET (FP) PO SCH (18:22)
[2021-08-01] MEDS: FERROUS SO4 325 MG TABLET (FP) PO SCH ×2 (08:39→18:29)
[2021-08-01 09:11] LABS: BASO % 0.3 % (0-2.0); EOS % 1.5 % (0-4.5); HEMATOCRIT 28.7 % (32.4-45.2); HEMOGLOBIN 9.8 GM/dL (10.7-15.3); LYMPH % 30.5 % (8-40); MCH 31.5 pg (25.7-33.7); MCHC 34.1 g/dl (32.0-36.0); MEAN CELL VOLUME 92.3 fl (80-96); MONO % 4.9 % (3.8-10.2); NEUT % 62.8 % (42.8-82.8); PLATELET COUNT 294 10^3/uL (134-434); WHITE BLOOD COUNT 8.1 K/mm3 (4.0-10.0)
[2021-08-01] MEDS: ELECTROLYTE-148 SOLN 1,000 ML IV SCH (10:09)
[2021-08-01] MEDS: PRENATAL VITAMINS W/ FOLIC ACID TABLET (FP) PO SCH (10:13)
[2021-08-01] MEDS ORDERED: SENNOSIDES/DOCUSATE COMBO (SENNA PLUS) TABLET (UD) PO PRN (22:00)
[2021-08-02] MEDS: FERROUS SO4 325 MG TABLET (FP) PO SCH (09:08)
[2021-08-02] MEDS: PRENATAL VITAMINS W/ FOLIC ACID TABLET (FP) PO SCH (09:08)
[2021-08-02 10:17] VITALS: BP 116/65; PULSE 74; TEMP 97.9
== END 2021-08-02 14:15 | disposition home or self-care (01) | DRG 560 ==
LOC: JDEL 09:13 → JLDR 09:45 → J3W 15:15
PROVIDERS: ADMIT Obstetrics & Gynecology; ATTEND Obstetrics & Gynecology
PROC: 10E0XZZ Delivery of Products of Conception, External Approach (ICD-10-PCS; principal; 2021-07-31)
DX: O99.824 Streptococcus B carrier state complicating childbirth (principal); B95.1 Streptococcus, group B, as the cause of diseases classified elsewhere; Z3A.39 39 weeks gestation of pregnancy; Z37.0 Single live birth
CPT/HCPCS: 36415; 59025; 59409; 80048; 85025; 85610; 85730; 86769; 86780; 86850; 86900; 86901; C9803; U0003; U0005

== ENCOUNTER 2024-02-24 13:50 | Inpatient (IN) | payer OTHER ==
[2024-02-24] MEDS: ELECTROLYTE-148 SOLN 1,000 ML IV SCH (14:45)
[2024-02-24] MEDS: DINOPROSTONE 10 MG VAGINAL SUPPOSITORY VG ONE (16:04)
[2024-02-24 16:19] LABS: BASO % 0.5 % (0-2.0); EOS % 0.8 % (0-4.5); HEMATOCRIT 36.7 % (32.4-45.2); HEMOGLOBIN 12.6 GM/dL (10.7-15.3); MCH 31.2 pg (25.7-33.7); MCHC 34.4 g/dl (32.0-36.0); MEAN CELL VOLUME 90.6 fl (80-96); MONO % 3.1 % (3.8-10.2); NEUT % 80.6 % (42.8-82.8); PLATELET COUNT 308 10^3/uL (134-434); RBC 4.05 M/mm3 (3.60-5.2); RDW 13.4 % (11.6-15.6); WHITE BLOOD COUNT 9.5 K/mm3 (4.0-10.0)
[2024-02-24 16:33] LABS: INR 0.95 (0.83-1.09); PROTHROMBIN TIME (PATIENT) 10.9 SEC (9.7-13.0)
[2024-02-24 16:36] LABS: ACTIVATED PTT 30.2 SECONDS (25.2-36.5)
[2024-02-24 16:38] VITALS: BMI 38.5
[2024-02-24 17:05] LABS: POTASSIUM 3.9 mmol/L (3.5-5.1)
[2024-02-24 17:07] LABS: CALCIUM 8.9 mg/dL (8.5-10.1)
[2024-02-24 17:08] LABS: BLOOD UREA NITROGEN 4.3 mg/dL (7-18)
[2024-02-24 17:10] LABS: CREATININE 0.4 mg/dL (0.55-1.3)
[2024-02-24] MEDS ORDERED: BUTORPHANOL TARTRATE 2 MG/ML VIAL ONE ×2 (18:06→23:43)
[2024-02-24] MEDS ORDERED: PROMETHAZINE HCL 25 MG/1 ML VIAL ONE ×2 (18:07→23:43)
[2024-02-24] MEDS: PROMETHAZINE HCL 25 MG/1 ML VIAL IVPB ONE ×2 (18:15→23:45)
[2024-02-24] MEDS: BUTORPHANOL TARTRATE 1 MG/ML VIAL IVPUSH ONE ×2 (18:15→23:46)
[2024-02-24] MEDS ORDERED: AMPICILLIN SODIUM 2 GM VIAL ONE (18:31)
[2024-02-24] MEDS: AMPICILLIN - 2 GM in SODIUM CHLORIDE 100 ML IVPB ONE (18:40)
[2024-02-24] MEDS ORDERED: AMPICILLIN SODIUM 1 GM VIAL ONE (22:23)
[2024-02-24] MEDS: AMPICILLIN - 1 GM in SODIUM CHLORIDE 100 ML IVPB SCH (22:25)
[2024-02-25] MEDS ORDERED: AMPICILLIN SODIUM 1 GM VIAL ONE (02:20)
[2024-02-25] MEDS ORDERED: FENTANYL/BUPIVACAINE/NS/PF - PCEA - 50 ML DISP.SYRIN EP ONE (02:29)
[2024-02-25] MEDS ORDERED: NALOXONE HCL 0.4 MG/ML VIAL IVPUSH PRN (02:36)
[2024-02-25] MEDS: FENTANYL/BUPIVACAINE/NS/PF - PCEA - 50 ML DISP.SYRIN EP SCH (02:55)
[2024-02-25] MEDS: OXYTOCIN 20 UNITS in 0.9% NS 20 UNIT/1,000 ML INFUS.BAG IV SCH (03:36)
[2024-02-25] MEDS: METHYLERGONOVINE MALEATE 0.2 MG/1 ML AMP IM ONE (03:39)
[2024-02-25] MEDS ORDERED: oxyCODONE HCL 5 MG TABLET PO PRN (03:43)
[2024-02-25] MEDS ORDERED: ACETAMINOPHEN 325 MG TABLET (FP) PO PRN (03:43)
[2024-02-25] MEDS ORDERED: BISACODYL 10 MG SUPP.RECT RC PRN (03:43)
[2024-02-25] MEDS ORDERED: METHYLERGONOVINE MALEATE 0.2 MG/1 ML AMP IM PRN (03:43)
[2024-02-25] MEDS ORDERED: BENZOCAINE 20% 57 GM BOTTLE TP PRN (03:43)
[2024-02-25] MEDS ORDERED: OXYTOCIN 20 UNITS in 0.9% NS 20 UNIT/1,000 ML INFUS.BAG IV ONE ×2 (04:34→06:15)
[2024-02-25 04:40] LABS: CORD HCO3 20.9 mmHg (20-29); CORD PCO2 38.1 mmHg (30-78); CORD pH 7.358 (7.14-7.44)
[2024-02-25] MEDS: OXYTOCIN 20 UNITS in 0.9% NS 20 UNIT/1,000 ML INFUS.BAG IV ONE (04:40)
[2024-02-25 04:41] LABS: CORD BASE EXCESS -5.2 mmol/L (0-2); CORD HCO3 21.6 mmHg (20-29); CORD PCO2 46.1 mmHg (30-78); CORD pH 7.288 (7.14-7.44)
[2024-02-25] MEDS: BENZOCAINE 28 GM HEMORRHOIDAL OINTMENT TP PRN (10:29)
[2024-02-25] MEDS: WITCH HAZEL 50% (TUCKS) 40 PAD/JAR PAD TP PRN (10:29)
[2024-02-25] MEDS: IBUPROFEN 600 MG TABLET (FP) PO PRN (10:30)
[2024-02-26 09:10] LABS: BASO % 0.6 % (0-2.0); EOS % 2.1 % (0-4.5); HEMATOCRIT 33.3 % (32.4-45.2); HEMOGLOBIN 11.3 GM/dL (10.7-15.3); MCH 31.5 pg (25.7-33.7); MEAN CELL VOLUME 92.7 fl (80-96); MEAN PLT VOLUME 6.9 fl (7.5-11.1); MONO % 2.8 % (3.8-10.2); NEUT % 70.5 % (42.8-82.8); PLATELET COUNT 299 10^3/uL (134-434); RBC 3.59 M/mm3 (3.60-5.2); RDW 13.7 % (11.6-15.6); WHITE BLOOD COUNT 8.3 K/mm3 (4.0-10.0)
[2024-02-26 20:58] VITALS: PULSE 64
[2024-02-26] MEDS ORDERED: SENNOSIDES/DOCUSATE COMBO (SENNA PLUS) TABLET (UD) PO PRN (22:00)
[2024-02-27 09:42] VITALS: BP 92/57; RESP 18; TEMP 98.6
== END 2024-02-27 13:55 | disposition home or self-care (01) | DRG 560 ==
LOC: JDEL 13:50 → JLDR 14:15 → J3W 02-25 05:47
PROVIDERS: ADMIT Obstetrics & Gynecology; ATTEND Obstetrics & Gynecology
PROC: 10E0XZZ Delivery of Products of Conception, External Approach (ICD-10-PCS; principal; 2024-02-25)
DX: O48.0 Post-term pregnancy (principal); Z3A.40 40 weeks gestation of pregnancy; O99.824 Streptococcus B carrier state complicating childbirth; Z37.0 Single live birth
CPT/HCPCS: 36415; 36600; 59409; 80048; 82803; 85025; 85610; 85730; 86780; 86850; 86900; 86901